=== PATIENT | male | born 1980 | race Caucasian/White ===

== ENCOUNTER 2020-06-05 14:47 | Emergency (ER) | payer MEDICAID ==
[~2020-06-05] VITALS: Ht 170.2 cm; Wt 72.0 kg
--- NOTE | 2020-06-05 15:16 | NUR ---
ED MEDIC AND EMT STUDENT IN TO START IV/DRAW LABS. PT UPDATED ON POC. FRIEND AT BS.
[2020-06-05] MEDS ORDERED: SODIUM CHLORIDE 0.9% 1,000ML IVBOLUS ONE (15:30)
[2020-06-05] MEDS ORDERED: SODIUM CHLORIDE FLUSH 10ML SYR IVF ONE (15:30)
[2020-06-05] MEDS ORDERED: PLEASE ENTER ALLERGIES MC SCH (15:30)
--- NOTE | 2020-06-05 15:36 | NUR ---
PT TRIAGED IN ROOM D/T BOWEL INCONTINENCE. PT PLACED ON ALL ROOM MONITORING. SEIZURE PADS IN PLACE. PT REPORTS OF ALCOHOL WITHDRAWAL SEIZURE ONE YEAR AGO WHILE IN [place] RESULTING IN FIVE DAY HOSPITALIZATION. PT DENIES AH, VH. +N/V. SLIGHT TREMORS NOTED TO BUE. IV PLACED, NS BOLUS INFUSING. CALL LIGHT WITHIN REACH. FRIEND AT BS.
[2020-06-05 15:44] LABS: BASOPHILS % (AUTO) 2 % (0-1); EOSINOPHILS % (AUTO) 1 % (1-7); LYMPHOCYTES % (AUTO) 29 % (22-44); MEAN CORPUSCULAR HEMOGLOBIN 30.8 pg (27.5-34.5); MEAN CORPUSCULAR HGB CONC 34.1 g/dL (33.2-36.2); MEAN PLATELET VOLUME 7.2 fL (7.4-10.4); MONOCYTES % (AUTO) 17 % (2-9); NEUTROPHILS % (AUTO) 52 % (42-75); RED BLOOD COUNT 4.95 x10^6/uL (4.38-5.82); RED CELL DISTRIBUTION WIDTH 15.8 % (9.4-14.8)
[2020-06-05] MEDS ORDERED: ONDANSETRON 2MG/ML, 2ML ONE (15:48)
[2020-06-05 15:55] LABS: ALANINE AMINOTRANSFERASE 140 U/L (12-78); ALBUMIN 4.4 g/dL (3.4-5.0); ANION GAP 12 mmol/L (5-15); CALCIUM 8.9 mg/dL (8.5-10.1); CHLORIDE 101 mmol/L (98-107); CREATININE 0.88 mg/dL (0.7-1.3)
[2020-06-05 15:57] LABS: ALKALINE PHOSPHATASE 128 U/L (45-117); BILIRUBIN,TOTAL 0.6 mg/dL (0.2-1.0); TOTAL PROTEIN 8.5 g/dL (6.4-8.2)
[2020-06-05] MEDS ORDERED: ONDANSETRON 2MG/ML, 2ML IVPush ONE (16:00)
[2020-06-05 16:13] LABS: PLATELET COUNT 48 x10^3/uL (130-400)
[2020-06-05 16:16] LABS: MD SCAN
--- NOTE | 2020-06-05 16:35 | NUR ---
ROUNDED ON PT. BP CUFF READING ERROR HYPOTENSIVE. BP REPLACED AND RECHECKED. VS UPDATED IN COMPUTER. PT AND FRIEND UPDATED ON RESULTS AND POC.
--- NOTE | 2020-06-05 16:54 | NUR ---
PT DRINKING WATER, NAUSEA DECREASED FOLLOWING ZOFRAN. NO VOMITING SINCE ED ADMISSION.
--- NOTE | 2020-06-05 17:09 | NUR ---
Break RN: Contacted [employer] school social science teacher, Myriam, to attempt to get patient into a detox program. Awaiting full reg for insurance info.
--- NOTE | 2020-06-05 18:04 | NUR ---
PT INSISTING ON PUTTING ON CLOTHES, REMOVED GOWN. PT ATTEMPTING TO GET OOB, STATES HE WANTS TO WALK AROUND. SBA, PT UP TO CHAIR AND FINISHED GETTING DRESSED. MONITORING DEVICES REMOVED FOR SAFETY. PT ASSISTED BACK TO [facility], LIGHTS DIMMED. PT STATES "I'LL TAKE A NAP".
[2020-06-05] MEDS ORDERED: LIDOCAINE-MPF 2% ,5ML ONE (18:22)
[2020-06-05 18:37] VITALS: BP 132/98
--- NOTE | 2020-06-05 18:40 | NUR ---
PT AMBULATORY IN [place] WITH STEADY GAIT. PT CLEARED TO GO TO [facility] FOR EVALUATION. PT PROVIDED TAXI VOUCHER.
== END 2020-06-05 18:41 | disposition home or self-care (01) ==
LOC: ED 17:49
DX: F10.220 Alcohol dependence with intoxication, uncomplicated (principal); R11.2 Nausea with vomiting, unspecified; Y90.0 Blood alcohol level of less than 20 mg/100 ml
CPT/HCPCS: 36415; 80053; 80320; 83690; 85025; 96361; 96374; 99283; J2405; J7030; G0480